=== PATIENT | male | born 1995 | race African-American/Black ===

== ENCOUNTER 2024-11-23 18:00 | Emergency (ER) | payer MEDICAID, OTHER ==
[~2024-11-23] VITALS: Ht 180.3 cm; Wt 61.0 kg
[2024-11-23 18:02] VITALS: O2SAT 99
[2024-11-23 18:10] VITALS: BP 129/62; PULSE 95; RESP 16; TEMP 36.9; O2SAT 99
== END 2024-11-23 18:11 ==
LOC: ER 18:00
DX: Z02.89 Encounter for other administrative examinations (principal); M25.561 Pain in right knee
CPT/HCPCS: 99283